=== PATIENT | male | born 1985 | race Caucasian/White ===

== ENCOUNTER 2018-08-11 02:57 | Emergency (ER) | payer SELFPAY ==
[~2018-08-11] VITALS: Ht 172.7 cm; Wt 80.7 kg
--- NOTE | 2018-08-11 03:10 | NUR ---
Dr. Teixeira at bedside for MSE.
--- NOTE | 2018-08-11 03:22 | NUR ---
Xray at bedside.
[2018-08-11 04:14] VITALS: BP 124/73
== END 2018-08-11 04:14 | disposition home or self-care (01) ==
LOC: ER 03:01
DX: S00.83XA Contusion of other part of head, initial encounter (principal); W51.XXXA Accidental striking against or bumped into by another person, initial encounter; Y93.89 Activity, other specified; Y92.89 Other specified places as the place of occurrence of the external cause; Y99.8 Other external cause status
CPT/HCPCS: 70110; A4663